=== PATIENT | female | born 1975 | race Two or more races ===

== ENCOUNTER 2017-06-20 01:51 | Inpatient (IN) | payer BC, MEDICAID, OTHER ==
[~2017-06-20] VITALS: Ht 165.1 cm; Wt 108.0 kg
--- NOTE | 2017-06-20 02:10 | NUR ---
PT BB SELF; BILAT LOWER EXTREMITY SWELLING X 3 WKS. PT AMBULATED TO BED WITH A STEADY GAIT. PT PLACED ON MONITOR WITH VITALS WNL. IV STARTED AND LABS DRAWN. PT C/O PAIN @ 5/10 ON LOWER FOOT. AWAITING MD ORDERS.
[2017-06-20] MEDS ORDERED: ASPIRIN 325 MG TABLET PO ONE (02:30)
[2017-06-20 02:58] LABS: BASOPHILS % (AUTO) 0.4 % (0.0-2.0); EOSINOPHILS % (AUTO) 0.4 % (0.0-6.0); HEMATOCRIT 39 % (33-45); HEMOGLOBIN 12.3 g/dL (11.5-14.8); LYMPHOCYTES # (AUTO) 2.2 /CMM (0.8-4.8); LYMPHOCYTES % (AUTO) 26.2 % (20.0-44.0); MEAN CORPUSCULAR HEMOGLOBIN 23 PG (26.0-33.0); MEAN CORPUSCULAR HGB CONC 32 g/dl (31.0-36.0); MEAN CORPUSCULAR VOLUME 73 fL (82-100); MONOCYTES # (AUTO) 0.8 /CMM (0.1-1.30); NEUTROPHILS # (AUTO) 5.5 /CMM (1.8-8.9); PLATELET COUNT (AUTO) 350 /CMM (150-450); RDW COEFFICIENT OF VARIATION 17.3 (11.5-15.0); RED BLOOD CELL COUNT(AUTO) 5.31 MIL/uL (4.0-5.2); WHITE BLOOD COUNT (AUTO) 8.6 K/uL (4.3-11.0)
[2017-06-20 03:09] LABS: CARBON DIOXIDE 24 mmol/L (21-32); CHLORIDE 106 mmol/L (98-107); CREATININE 0.9 mg/dL (0.6-1.3); GLUCOSE 108 mg/dL (74-106); POTASSIUM 4.2 mmol/L (3.5-5.1); SODIUM SERUM 138 mmol/L (136-145); UREA NITROGEN, BLOOD 19 mg/dL (7-18)
[2017-06-20 03:13] LABS: INR 1.1 (0.87-1.13); PROTHROMBIN TIME 11.4 SECS (9.5-12.7)
[2017-06-20 03:19] LABS: TROPONIN I < 0.017 ng/mL (0.00-0.056)
[2017-06-20] MEDS ORDERED: ASPIRIN 325 MG TABLET ONE (03:19)
[2017-06-20 03:22] LABS: ALANINE AMINOTRANSFERASE 71 U/L (12-78); ALBUMIN 3.1 g/dL (3.4-5.0); ALKALINE PHOSPHATASE 109 U/L (46-116); ASPARTATE AMINOTRANSFERASE 57 U/L (15-37); B-TYPE NATRIURETIC PEPTIDE 2012 PG/ML (0-125); BILIRUBIN,DIRECT 0.3 mg/dL (0.0-0.2); TOTAL PROTEIN, SERUM 7.7 g/dL (6.4-8.2)
[2017-06-20] MEDS ORDERED: FUROSEMIDE 40 MG/4 ML VIAL ONE (03:41)
[2017-06-20] MEDS ORDERED: FUROSEMIDE 40 MG/4 ML VIAL IV ONE (04:00)
--- NOTE | 2017-06-20 04:15 | NUR ---
REPORT GIVEN TO EDDIE/RN ON BEHALF OF PRIMARY NURSE WILIAM.
--- NOTE | 2017-06-20 04:20 | NUR ---
RN NOTES REPORT RECEIVED FROM DIESEL POWERPLANT MECHANIC GLEN/KIM
[2017-06-20] MEDS ORDERED: MAGNESIUM HYDROXIDE 30 ML UDC PO PRN (04:30)
[2017-06-20] MEDS ORDERED: ZOLPIDEM TARTRATE 5 MG TABLET PO PRN (04:30)
[2017-06-20] MEDS ORDERED: Z GUARD REMEDY 2 OZ OINT TP PRN (04:30)
[2017-06-20] MEDS ORDERED: MAG HYDROX/AL HYDROX/SIMETH 30 ML UDC PO PRN (04:30)
--- NOTE | 2017-06-20 04:30 | NUR ---
RN NOTES PT ARRIVED VIA GURNEY. ABLE TO AMBULATE ON A STEADY GAIT. ON ROOM AIR, NO S/S OF RESP DISTRESS, NO COMPLAINTS OF PAIN. PT IS CONTINENT AND IS BRP. SKIN IS INTACT. BILATERAL FEET SWELLING PITTING +2 NOTED. LEFT AC 18G FLUSHED AND PATENT, NO S/S OF INFILTRATION/INFECTION, DRESSING CDI. BED LOW AND LOCKED, SIDERAILS UP, CALL LIGHT WITHIN REACH. FAMILY AT BEDSIDE. WILL MONITOR
--- NOTE | 2017-06-20 04:39 | NUR ---
PT TRANSPORTED TO [facility] BED 112-1 PER ACLS PROTOCOL FOR CONTINUITY OF CARE.
[2017-06-20 04:44] VITALS: BP 139/105
[2017-06-20] MEDS ORDERED: HYDROCODONE/APAP 5/325MG 1 EACH TABLET ONE (06:25)
[2017-06-20] MEDS: HYDROCODONE/APAP 5/325MG 1 EACH TABLET PO PRN ×2 (06:26→11:20)
--- NOTE | 2017-06-20 06:30 | NUR ---
RN CLOSING NOTES PT REMAINS STABLE OF THE MOMENT. ALL DUE MEDS GIVEN, AM CARE PROVIDED. WILL ENDORSE FRANCY TO AM RN
--- NOTE | 2017-06-20 07:30 | NUR ---
RN NOTE PT AOX4, IN BED, AMBULATORY, NO SOB, CO PAIN IN ABDOMEN THAT RADIATES FROM CRAMPS IN HER BLE, EDEMA IN BOTH FEET +1, SKIN BLE PINK COLOR, TELE MONITOR IN PLACE, IV IN PLACE, LAC, 18 G, INTACT, ALEN LIGHT WITHIN REACH, BED IN LOCKED AND LOW POSITION, WILL MONITOR CLOSELY.
[2017-06-20 08:00] VITALS: BP 143/108
[2017-06-20] MEDS: FUROSEMIDE 40 MG/4 ML VIAL IV SCH (09:14)
[2017-06-20 10:29] LABS: THYROID STIMULATING HORMONE 1.049 uIU/mL (0.358-3.74)
[2017-06-20] MEDS ORDERED: POLYVINYL ALCOHOL 15 ML BOTTLE EACHEYE PRN (11:00)
[2017-06-20] MEDS: PANTOPRAZOLE 40 MG TABLET.DR PO SCH (11:13)
[2017-06-20] MEDS: VALSARTAN 80 MG TABLET PO SCH (11:14)
[2017-06-20] MEDS: ENOXAPARIN SODIUM 40 MG/0.4 ML DISP.SYRIN SQ SCH (11:15)
[2017-06-20] MEDS ORDERED: Calcium Gluconate 1GM/10ML 4.65 MEQ in IV D5W 50 ML IV ONE (11:30)
[2017-06-20 12:00] VITALS: BP_SYST 138; BP_DIAS 92; BP_DIAS 98
[2017-06-20] MEDS ORDERED: IV NS 0.9% 250 ML IV ONE (12:48)
[2017-06-20] MEDS ORDERED: IOHEXOL-350 100 ML VIAL IV ONE (12:48)
[2017-06-20] MEDS: ONDANSETRON HCL/PF 4 MG/2 ML VIAL IVP PRN ×2 (14:13→20:15)
--- NOTE | 2017-06-20 14:15 | NUR ---
RN NOTE PT VOMITED X1 AFTER HAVING LUNCH, ZOFRAN GIVEN. PAIN WAS ADDRESSED BY NORCO , EARLIER BEFORE CT OF THE CHEST. WILL MONITOR THE PT.
[2017-06-20 16:00] VITALS: BP 124/84
--- NOTE | 2017-06-20 19:30 | NUR ---
RN NOTE RECEIVED PATIENT IN BED, AWAKE, ALERT AND ORIENTED X4, ABLE TO VERBALIZE NEEDS. PATIENT DENIES SOB, BREATHING EVEN AND NONLABORED. NOTED WITH BLE EDEMA +1, WHICH PATIENT STATES "IT HAS IMPROVED." PATIENT ON TELEMETRY MONITORING, REVEALING SINUS RHYTHM. IV SITE PATENT AND INTACT, FLUSHED WITH NS, SALINE LOCKED. PLAN OF CARE DISCUSSED WITH THE PATIENT, WHO VERBALIZES UNDERSTANDING. CALL LIGHT LEFT WITHIN EASY REACH, BED IN LOWEST AND LOCKED POSITION. WILL CONTINUE TO CLOSELY MONITOR
[2017-06-20 20:00] VITALS: BP 111/74
[2017-06-21] VITALS: BP 135/88
[2017-06-21 04:00] VITALS: BP 104/70
--- NOTE | 2017-06-21 06:57 | NUR ---
RN CLOSING NOTES PATIENT SLEEPING IN BED, APPEARS COMFORTABLE. NO ACUTE CHANGES THROUGHOUT THE SHIFT. WILL ENDORSE THE PATIENT TO THE AM SHIFT NURSE FOR FRANCY
[2017-06-21 07:41] LABS: BILIRUBIN,TOTAL 0.8 mg/dL (0.2-1.0); CALCIUM, SERUM 9.3 mg/dL (8.5-10.1); CREATININE 0.9 mg/dL (0.6-1.3); MAGNESIUM 2.3 mg/dL (1.8-2.4); PHOSPHORUS 4.8 mg/dL (2.5-4.9); POTASSIUM 4.4 mmol/L (3.5-5.1); TOTAL PROTEIN, SERUM 7.8 g/dL (6.4-8.2)
[2017-06-21 07:43] LABS: BASOPHILS % (AUTO) 0.5 % (0.0-2.0); EOSINOPHILS % (AUTO) 0.3 % (0.0-6.0); HEMATOCRIT 43 % (33-45); HEMOGLOBIN 13.1 g/dL (11.5-14.8); LYMPHOCYTES % (AUTO) 19.6 % (20.0-44.0); MEAN CORPUSCULAR HEMOGLOBIN 23 PG (26.0-33.0); MEAN CORPUSCULAR HGB CONC 31 g/dl (31.0-36.0); MEAN CORPUSCULAR VOLUME 74 fL (82-100); MONOCYTES # (AUTO) 0.7 /CMM (0.1-1.30); MONOCYTES % (AUTO) 6.8 % (2.0-12.0); NEUTROPHILS # (AUTO) 7.4 /CMM (1.8-8.9); NEUTROPHILS % (AUTO) 72.8 % (43.0-81.0); PLATELET COUNT (AUTO) 364 /CMM (150-450); RDW COEFFICIENT OF VARIATION 17.3 (11.5-15.0); RED BLOOD CELL COUNT(AUTO) 5.73 MIL/uL (4.0-5.2); WHITE BLOOD COUNT (AUTO) 10.2 K/uL (4.3-11.0)
[2017-06-21 07:44] LABS: TROPONIN I 0.004 ng/mL (0.00-0.056)
[2017-06-21 08:00] VITALS: BP 104/70
[2017-06-21] MEDS: PANTOPRAZOLE 40 MG TABLET.DR PO SCH (08:56)
[2017-06-21] MEDS: FUROSEMIDE 40 MG/4 ML VIAL IV SCH (08:57)
[2017-06-21] MEDS: ENOXAPARIN SODIUM 40 MG/0.4 ML DISP.SYRIN SQ SCH (09:06)
[2017-06-21 11:15] LABS: BAND % (MANUAL) 4 % (0.0-5.0); LYMPHOCYTES % (MANUAL) 15 % (16-48); NEUTROPHILS % (MANUAL) 81 (42-76)
[2017-06-21 12:00] VITALS: BP 123/90
[2017-06-21] MEDS: VALSARTAN 80 MG TABLET PO SCH (12:34)
[2017-06-21] MEDS: SOD FERRIC GLUC 125 MG in IV NS 0.9% 100 ML IV SCH (15:10)
[2017-06-21 16:00] VITALS: BP 97/65
--- NOTE | 2017-06-21 19:45 | NUR ---
GREASER HELPER INITIAL NOTE PT RECEIVED IN NO ACUTE DISTRESS AT THIS TIME. ON TELE WITH ST 100'S. PT IS A/O X4 ABLE TO MAKE NEEDS KNOWN. AMBULATORY AND ABLE TO GO TO RESTROOM ON OWN. BREATHING PATTERN IS NORMAL WITH ADEQUATE CHEST RISE/FALL. PT HAS LAC 18 G AND RFA 18G THAT ARE CLEAN DRY AND INTACT. COMFORT AND SAFETY MEASURES TO BE ENSURED DURING THE SHIFT. WILL CONTINUE TO MONITOR FOR ANY CHANGES DURING THE SHIFT.
[2017-06-21 20:00] VITALS: BP 102/65
[2017-06-21] MEDS: ACETAMINOPHEN 325 MG TABLET PO PRN (21:02)
[2017-06-22] VITALS: BP 108/70
[2017-06-22 04:00] VITALS: BP 120/83
[2017-06-22 07:14] LABS: BASOPHILS % (AUTO) 0.3 % (0.0-2.0); EOSINOPHILS # (AUTO) 0.1 /CMM (0.0-0.7); EOSINOPHILS % (AUTO) 0.8 % (0.0-6.0); HEMATOCRIT 42 % (33-45); HEMOGLOBIN 13.4 g/dL (11.5-14.8); LYMPHOCYTES # (AUTO) 2.1 /CMM (0.8-4.8); MEAN CORPUSCULAR HEMOGLOBIN 23 PG (26.0-33.0); MEAN CORPUSCULAR HGB CONC 32 g/dl (31.0-36.0); MEAN CORPUSCULAR VOLUME 74 fL (82-100); MONOCYTES # (AUTO) 0.6 /CMM (0.1-1.30); MONOCYTES % (AUTO) 6.9 % (2.0-12.0); NEUTROPHILS # (AUTO) 5.6 /CMM (1.8-8.9); PLATELET COUNT (AUTO) 381 /CMM (150-450); RDW COEFFICIENT OF VARIATION 17.8 (11.5-15.0); RED BLOOD CELL COUNT(AUTO) 5.73 MIL/uL (4.0-5.2); WHITE BLOOD COUNT (AUTO) 8.4 K/uL (4.3-11.0)
[2017-06-22 07:27] LABS: CALCIUM, SERUM 9.1 mg/dL (8.5-10.1); CREATININE 0.8 mg/dL (0.6-1.3); MAGNESIUM 2.2 mg/dL (1.8-2.4); PHOSPHORUS 3.5 mg/dL (2.5-4.9); POTASSIUM 4.1 mmol/L (3.5-5.1)
[2017-06-22 08:00] VITALS: BP 122/85
[2017-06-22 09:06] LABS: LYMPHOCYTES % (MANUAL) 12 % (16-48); MONOCYTES % (MANUAL) 5 % (0-11.0); NEUTROPHILS % (MANUAL) 83 (42-76)
[2017-06-22] MEDS: FUROSEMIDE 40 MG/4 ML VIAL IV SCH (11:35)
[2017-06-22] MEDS: VALSARTAN 80 MG TABLET PO SCH (11:35)
[2017-06-22] MEDS: ACETAMINOPHEN 325 MG TABLET PO PRN (11:49)
[2017-06-22] MEDS: PANTOPRAZOLE 40 MG TABLET.DR PO SCH (11:49)
[2017-06-22] MEDS: ENOXAPARIN SODIUM 40 MG/0.4 ML DISP.SYRIN SQ SCH (11:53)
[2017-06-22 12:00] VITALS: BP 91/63
[2017-06-22] MEDS: SOD FERRIC GLUC 125 MG in IV NS 0.9% 100 ML IV SCH (14:41)
[2017-06-22 16:00] VITALS: BP 106/66
--- NOTE | 2017-06-22 19:15 | NUR ---
Handoff report to night nurse.
--- NOTE | 2017-06-22 19:45 | NUR ---
LOAN COORDINATOR INITIAL NOTE PT RECEIVED IN NO ACUTE DISTRESS AT THIS TIME. ON TELE WITH ST 100'S. PT IS A/O X4 ABLE TO MAKE NEEDS KNOWN. AMBULATORY AND ABLE TO GO TO RESTROOM ON OWN. BREATHING PATTERN IS NORMAL WITH ADEQUATE CHEST RISE/FALL. PT HAS LAC 18 G CLEAN DRY AND INTACT. COMFORT AND SAFETY MEASURES TO BE ENSURED DURING THE SHIFT. WILL CONTINUE TO MONITOR FOR ANY CHANGES DURING THE SHIFT.
[2017-06-22 20:00] VITALS: BP 100/68
[2017-06-23 04:00] VITALS: BP 127/85
--- NOTE | 2017-06-23 07:30 | NUR ---
PT. A/O X4 .NO S/S OF DISTRESS, BREATHING EVEN AND UNLABORED.I.V SITE CDI AND PATENT.NO C/O PAIN.SAFETY MEASURES IN PLACE.BED IN LOW AND LOCKED POSITION.WILL CONTINUE TO MONITOR FOR CHANGES.
[2017-06-23 08:00] VITALS: BP 103/74
[2017-06-23] MEDS: VALSARTAN 80 MG TABLET PO SCH (09:02)
[2017-06-23] MEDS: ENOXAPARIN SODIUM 40 MG/0.4 ML DISP.SYRIN SQ SCH (09:03)
[2017-06-23] MEDS: PANTOPRAZOLE 40 MG TABLET.DR PO SCH (09:04)
[2017-06-23] MEDS ORDERED: FERR-58 PO (11:17)
[2017-06-23] MEDS ORDERED: VALS80TA2 PO (11:17)
[2017-06-23 12:00] VITALS: BP 103/74
--- NOTE | 2017-06-23 13:00 | NUR ---
patient d/c to home as per m.d order.all orders noted and carried out.all d/c instructions and belongings provided to patient.
== END 2017-06-23 13:44 | disposition home or self-care (01) | DRG 142 ==
LOC: ER 01:54 → TELE1 04:14 → MEDSG1 06-22 13:18
PROVIDERS: ADMIT Family Medicine; ATTEND Family Medicine
DX: J84.9 Interstitial pulmonary disease, unspecified (principal); I50.33 Acute on chronic diastolic (congestive) heart failure; E11.42 Type 2 diabetes mellitus with diabetic polyneuropathy; I27.20 Pulmonary hypertension, unspecified; E66.01 Morbid (severe) obesity due to excess calories; E88.09 Other disorders of plasma-protein metabolism, not elsewhere classified; I36.1 Nonrheumatic tricuspid (valve) insufficiency; G47.33 Obstructive sleep apnea (adult) (pediatric); D50.9 Iron deficiency anemia, unspecified; K76.0 Fatty (change of) liver, not elsewhere classified; I34.0 Nonrheumatic mitral (valve) insufficiency; Z68.39 Body mass index [BMI] 39.0-39.9, adult; I87.8 Other specified disorders of veins
CPT/HCPCS: 36415; 71010-TC; 80048-TC; 80053-TC; 80061-TC; 80076-TC; 82306; 82728-TC; 83540-TC; 83735-TC; 83880; 84100-TC; 84439-TC; 84443-TC; 84484-TC; 84702-TC; 85025-TC; 85730-TC; 87081-TC; 93307-TC; 93970-TC; A4606; J0610; J1650; J1940; J2405; J2916; J7030; J7050; J7060; Q9967; Z7610

== ENCOUNTER 2017-06-28 14:08 | Outpatient (CLI) | payer OTHER ==
[~2017-06-28 14:08] MED LIST: FERR-58 PO; VALS80TA2 PO
== END 2017-06-28 23:59 | disposition home or self-care (01) ==
LOC: MSC 14:08
PROVIDERS: ATTEND Internal Medicine
DX: R68.89 Other general symptoms and signs (principal)

== ENCOUNTER 2017-08-03 22:14 | Emergency (ER) | payer OTHER ==
[~2017-08-03] VITALS: Ht 157.5 cm; Wt 107.5 kg
--- NOTE | 2017-08-03 22:30 | NUR ---
BIBSELF C/O "COUGH AND CONGESTION X 3 MONTHS" PT STATES "SOB" A/OX 4. BREATHING EVEN AND UNLABORED. SATURATION 96% ON ROOM AIR. VITALS STABLE. SAFETY AND COMFORT MEASURES IN PLACE. AWAITING MD ORDERS.
[2017-08-03] MEDS ORDERED: IV NS 0.9% 1,000 ML BAG IV ONE (23:00)
--- NOTE | 2017-08-03 23:10 | NUR ---
NEW IV STARTED ON LEFT HAND, 20 G. BLOOD DRAWN AND SENT TO LAB.
[2017-08-03 23:38] LABS: CALCIUM, SERUM 8.8 mg/dL (8.5-10.1); CARBON DIOXIDE 20 mmol/L (21-32); CHLORIDE 109 mmol/L (98-107); CREATININE 0.9 mg/dL (0.6-1.3); GLUCOSE 94 mg/dL (74-106); POTASSIUM 4.7 mmol/L (3.5-5.1); SODIUM SERUM 143 mmol/L (136-145); UREA NITROGEN, BLOOD 14 mg/dL (7-18)
[2017-08-03 23:43] LABS: BASOPHILS # (AUTO) 0.1 /CMM (0.0-0.2); BASOPHILS % (AUTO) 1.4 % (0.0-2.0); EOSINOPHILS % (AUTO) 0.2 % (0.0-6.0); HEMATOCRIT 44 % (33-45); HEMOGLOBIN 13.3 g/dL (11.5-14.8); LYMPHOCYTES # (AUTO) 1.8 /CMM (0.8-4.8); LYMPHOCYTES % (AUTO) 22.2 % (20.0-44.0); MEAN CORPUSCULAR HEMOGLOBIN 22 PG (26.0-33.0); MEAN CORPUSCULAR HGB CONC 30 g/dl (31.0-36.0); MEAN CORPUSCULAR VOLUME 71 fL (82-100); MONOCYTES # (AUTO) 0.6 /CMM (0.1-1.30); MONOCYTES % (AUTO) 6.7 % (2.0-12.0); NEUTROPHILS # (AUTO) 5.7 /CMM (1.8-8.9); NEUTROPHILS % (AUTO) 69.5 % (43.0-81.0); PLATELET COUNT (AUTO) 324 /CMM (150-450); RED BLOOD CELL COUNT(AUTO) 6.18 MIL/uL (4.0-5.2); WHITE BLOOD COUNT (AUTO) 8.2 K/uL (4.3-11.0)
--- NOTE | 2017-08-03 23:45 | NUR ---
US TECH AT BEDSIDE.
[2017-08-03 23:50] LABS: ALANINE AMINOTRANSFERASE 66 U/L (12-78); ALBUMIN 3.1 g/dL (3.4-5.0); ALKALINE PHOSPHATASE 115 U/L (46-116); ASPARTATE AMINOTRANSFERASE 57 U/L (15-37); BILIRUBIN,DIRECT 0.2 mg/dL (0.0-0.2); BILIRUBIN,TOTAL 0.7 mg/dL (0.2-1.0); TOTAL PROTEIN, SERUM 8.1 g/dL (6.4-8.2)
[2017-08-04] MEDS ORDERED: predniSONE 20 MG TABLET PO ONE (00:30)
[2017-08-04] MEDS ORDERED: predniSONE 20 MG TABLET ONE (00:42)
[2017-08-04 01:02] VITALS: BP 156/74
--- NOTE | 2017-08-04 01:02 | NUR ---
PT OK TO DISCHARGE PER [employer] HAT MAKER. Patient discharged to home in stable condition. Written and verbal after care instructions given. Patient verbalizes understanding of instruction.Patient is awake and alert to self, day, and place. PT ambulatory with a steady gait
== END 2017-08-04 01:03 | disposition home or self-care (01) ==
LOC: ER 22:18
DX: J40 Bronchitis, not specified as acute or chronic (principal); I73.89 Other specified peripheral vascular diseases
CPT/HCPCS: 36415; 71010; 80048; 80076; 83605; 85025; 85652; 86140; 87040 ×2; 93925; 93970; 96360; 99285; A4606; J7030; J7512; Z7610

== ENCOUNTER 2017-09-29 00:33 | Inpatient (IN) | payer OTHER ==
[~2017-09-29] VITALS: Ht 160 cm; Wt 117.9 kg
[~2017-09-29 00:33] MED LIST changes: -FERR-58 PO; +FERR325T23 PO
--- NOTE | 2017-09-29 00:50 | NUR ---
PT PRESENTED TO THE ER WITH A C/O BLE EDEMA, REDNESS, C/O SOB, TIGHTNESS NOTED, PT STATED: "I CAN'T FEEL MY FEET TODAY". SMALL RASH NOTED ON BUE AND BLE WITH WEEPING AREAS ON BLE. EASTON SALCEDO IS AT THE BEDSIDE SPEAKING TO THE PT.
--- NOTE | 2017-09-29 01:09 | NUR ---
DR SCHAFFER IS AT THE BEDSIDE EVALUATING THE PT.
[2017-09-29] MEDS ORDERED: IV NS 0.9% 1,000 ML BAG IV ONE (01:30)
--- NOTE | 2017-09-29 01:56 | NUR ---
CXR IN PROGRESS AT THE BEDSIDE.
--- NOTE | 2017-09-29 01:56 | NUR ---
CHERIE, CLOTHES IRONER AWAITING BLOOD DRAW.
--- NOTE | 2017-09-29 01:57 | NUR ---
VALERIA ROSE ASSUMING CARE OF PT.
--- NOTE | 2017-09-29 02:06 | NUR ---
EKG DONE AT THE BEDSIDE. BLOOD DRAW DONE AND TAKEN TO LAB. PT WAS UNABLE TO GIVE A URINE SAMPLE.
--- NOTE | 2017-09-29 02:07 | NUR ---
PT'S BILATERAL TOES ARE PURPLE AND COOL TO TOUCH. TOENAILS ARE CYANOTIC. MD IS AWARE. STRONG BILATERAL PEDAL PULSES NOTED.
--- NOTE | 2017-09-29 02:10 | NUR ---
PT REC'D WARM BLANKETS AND APPEARS TO BE RESTING COMFORTABLY. RESP EVEN AND UNLABORED. PT IS ST ON THE MONITOR @109.
[2017-09-29 02:18] LABS: BASOPHILS # (AUTO) 0.1 /CMM (0.0-0.2); BASOPHILS % (AUTO) 1.5 % (0.0-2.0); EOSINOPHILS % (AUTO) 0.1 % (0.0-6.0); HEMATOCRIT 43 % (33-45); LYMPHOCYTES # (AUTO) 1.7 /CMM (0.8-4.8); LYMPHOCYTES % (AUTO) 21.2 % (20.0-44.0); MEAN CORPUSCULAR HEMOGLOBIN 21 PG (26.0-33.0); MEAN CORPUSCULAR HGB CONC 31 g/dl (31.0-36.0); MEAN CORPUSCULAR VOLUME 70 fL (82-100); MONOCYTES # (AUTO) 0.4 /CMM (0.1-1.30); MONOCYTES % (AUTO) 5.1 % (2.0-12.0); NEUTROPHILS # (AUTO) 5.8 /CMM (1.8-8.9); NEUTROPHILS % (AUTO) 72.1 % (43.0-81.0); PLATELET COUNT (AUTO) 310 /CMM (150-450); RDW COEFFICIENT OF VARIATION 21.8 (11.5-15.0); RED BLOOD CELL COUNT(AUTO) 6.12 MIL/uL (4.0-5.2); WHITE BLOOD COUNT (AUTO) 8.1 K/uL (4.3-11.0)
--- NOTE | 2017-09-29 02:20 | NUR ---
PT REMINDED THAT URINE SAMPLE STILL NEEDED. WILL F/U
--- NOTE | 2017-09-29 02:31 | NUR ---
PT OFF TO CT SCAN IN STABLE CONDITION
[2017-09-29 02:35] LABS: INR 1.47 (0.87-1.13)
--- NOTE | 2017-09-29 02:40 | NUR ---
PT BACK FROM CT SCAN
[2017-09-29 02:41] LABS: TROPONIN I 0.017 ng/mL (0.00-0.056)
[2017-09-29 02:47] LABS: ALANINE AMINOTRANSFERASE 40 U/L (12-78); ALBUMIN 2.8 g/dL (3.4-5.0); ALKALINE PHOSPHATASE 122 U/L (46-116); ASPARTATE AMINOTRANSFERASE 49 U/L (15-37); B-TYPE NATRIURETIC PEPTIDE 1501 PG/ML (0-125); BILIRUBIN,DIRECT 1.7 mg/dL (0.0-0.2); BILIRUBIN,TOTAL 2.9 mg/dL (0.2-1.0); CARBON DIOXIDE 22 mmol/L (21-32); CHLORIDE 107 mmol/L (98-107); CREATININE 0.8 mg/dL (0.6-1.3); GLUCOSE 90 mg/dL (74-106); POTASSIUM 4.1 mmol/L (3.5-5.1); SODIUM SERUM 141 mmol/L (136-145); TOTAL PROTEIN, SERUM 8.3 g/dL (6.4-8.2); UREA NITROGEN, BLOOD 15 mg/dL (7-18)
[2017-09-29 02:50] LABS: BAND % (MANUAL) 2 % (0.0-5.0); LYMPHOCYTES % (MANUAL) 23 % (16-48); MONOCYTES % (MANUAL) 4 % (0-11.0); NEUTROPHILS % (MANUAL) 71 (42-76)
--- NOTE | 2017-09-29 03:01 | NUR ---
ER AWARE OF ELEVATED LAB LACTIC ACID
[2017-09-29] MEDS ORDERED: FUROSEMIDE 40 MG/4 ML VIAL IV ONE (03:30)
[2017-09-29] MEDS ORDERED: FUROSEMIDE 40 MG/4 ML VIAL ONE (03:35)
[2017-09-29] MEDS ORDERED: FUROSEMIDE 20 MG/2 ML VIAL ONE (03:35)
--- NOTE | 2017-09-29 03:59 | NUR ---
PT COMFORTABLY SLEEPING IN BED. NO C/O PAIN OR SOB
--- NOTE | 2017-09-29 04:39 | NUR ---
REPORT GIVEN TO [place]
--- NOTE | 2017-09-29 05:00 | NUR ---
MS RN NOTE: RECEIVED PATIENT FROM ER, NO ACUTE DISTRESS NOTED. BREATHING EVEN AND UNLABORED, NO SOB NOTED. IV TO RIGHT HAND IN PLACE. PATIENT WITH RASHES ALL OVER BODY, PICTURES TAKEN. ORIENTED PATIENT TO ROOM AND USE OF CALL LIGHT . BED LOCKED AND IN LOWEST POSITION, CALL LIGHT IN REACH. WILL CONTINUE TO MONITOR.
--- NOTE | 2017-09-29 06:15 | NUR ---
MS RN NOTE: PATIENT LACTIC ACID 2.3, CALLED BATTERY CONTAINER TESTER ALUMINUM MD, SPOKE TO DR. VELEZ. PATIENT TO BE ADMITTED TO TELE, PATIENT TO BE TRANSFERRED UP TO ROOM 315-2. MD TO ENTER THE REST OF MD ORDER. WILL CONTINUE TO MONITOR.
[2017-09-29] MEDS ORDERED: ONDANSETRON HCL/PF 4 MG/2 ML VIAL IVP PRN (06:30)
[2017-09-29] MEDS ORDERED: ACETAMINOPHEN 325 MG TABLET PO PRN (06:30)
[2017-09-29] MEDS ORDERED: MORPHINE SULFATE INJ 2 MG/ML DISP.SYRIN IV PRN (06:30)
[2017-09-29] MEDS ORDERED: ZOLPIDEM TARTRATE 5 MG TABLET PO PRN (06:30)
--- NOTE | 2017-09-29 06:50 | NUR ---
APPLICATIONS DEVELOPMENT ANALYST NOTE: PATIENT TRANSFERRED UP TO ROOM 315-2 IN STABLE CONDITION, REPORT GIVEN TO JOHNSON. BELONGINGS WITH PATIENT.
[2017-09-29 08:00] VITALS: BP 143/97
[2017-09-29 08:01] LABS: BASOPHILS # (AUTO) 0.1 /CMM (0.0-0.2); BASOPHILS % (AUTO) 1.1 % (0.0-2.0); EOSINOPHILS % (AUTO) 0.4 % (0.0-6.0); HEMATOCRIT 39 % (33-45); HEMOGLOBIN 12.1 g/dL (11.5-14.8); LYMPHOCYTES # (AUTO) 1.5 /CMM (0.8-4.8); LYMPHOCYTES % (AUTO) 20.3 % (20.0-44.0); MEAN CORPUSCULAR HEMOGLOBIN 21 PG (26.0-33.0); MEAN CORPUSCULAR HGB CONC 31 g/dl (31.0-36.0); MEAN CORPUSCULAR VOLUME 69 fL (82-100); MONOCYTES # (AUTO) 0.7 /CMM (0.1-1.30); MONOCYTES % (AUTO) 9.1 % (2.0-12.0); NEUTROPHILS # (AUTO) 5.1 /CMM (1.8-8.9); NEUTROPHILS % (AUTO) 69.1 % (43.0-81.0); PLATELET COUNT (AUTO) 274 /CMM (150-450); RDW COEFFICIENT OF VARIATION 21.9 (11.5-15.0); RED BLOOD CELL COUNT(AUTO) 5.64 MIL/uL (4.0-5.2); WHITE BLOOD COUNT (AUTO) 7.4 K/uL (4.3-11.0)
--- NOTE | 2017-09-29 08:15 | NUR ---
LACTIC ACID REPORT GIVEN TO DR. FLETCHER.
[2017-09-29 08:17] LABS: IRON, SERUM 42 ug/dl (50-175); TOTAL IRON BINDING CAPACITY 521 ug/dl (250-450)
[2017-09-29 08:21] LABS: ALANINE AMINOTRANSFERASE 35 U/L (12-78); ALBUMIN 2.6 g/dL (3.4-5.0); ALKALINE PHOSPHATASE 112 U/L (46-116); ASPARTATE AMINOTRANSFERASE 45 U/L (15-37); BILIRUBIN,TOTAL 3.3 mg/dL (0.2-1.0); CARBON DIOXIDE 23 mmol/L (21-32); CHLORIDE 108 mmol/L (98-107); CREATININE 0.9 mg/dL (0.6-1.3); GLUCOSE 82 mg/dL (74-106); MAGNESIUM 1.7 mg/dL (1.8-2.4); PHOSPHORUS 2.9 mg/dL (2.5-4.9); POTASSIUM 4.1 mmol/L (3.5-5.1); SODIUM SERUM 143 mmol/L (136-145); TOTAL PROTEIN, SERUM 7.7 g/dL (6.4-8.2); UREA NITROGEN, BLOOD 15 mg/dL (7-18)
[2017-09-29 08:28] LABS: THYROID STIMULATING HORMONE 1.924 uIU/mL (0.358-3.74)
[2017-09-29] MEDS ORDERED: FUROSEMIDE 20 MG/2 ML VIAL IV SCH (09:00)
[2017-09-29 09:10] LABS: EOSINOPHILS % (MANUAL) 1 % (0-4); LYMPHOCYTES % (MANUAL) 20 % (16-48); MONOCYTES % (MANUAL) 6 % (0-11.0); NEUTROPHILS % (MANUAL) 73 (42-76)
--- NOTE | 2017-09-29 10:00 | NUR ---
DR. VORA IN TO SEE PT. ORDERS GIVEN.PT. KENNY AT TIMES,NO COMPLAINTS OFFERED.
[2017-09-29] MEDS: IV NS 0.9% 1,000 ML IV PRN (11:42)
[2017-09-29] MEDS ORDERED: IOHEXOL-300 100 ML VIAL IV ONE (11:45)
[2017-09-29] MEDS ORDERED: CT SWABBABLE VALVE TRANS SET 1 EA INFUS.SET MC ONE (11:45)
[2017-09-29] MEDS: METOPROLOL TARTRATE 25 MG TABLET PO SCH ×2 (11:55→20:59)
[2017-09-29] MEDS: PANTOPRAZOLE 40 MG TABLET.DR PO SCH (11:55)
--- NOTE | 2017-09-29 12:30 | NUR ---
INSISTED ON GETTING UP TO BATHRM,ALTHOUGH DIZZY,RN DISCOURAGED.PT. ADAMANT.TAKEN TO BATHROOM IN W/C,HAD SMALL BM.SHORTLY AFTER GETTING BACK TO BED,WITH INCREASED DIZZINESS,POX TO 89%BP TO 101/64HEART RATE 78.RN STAYED IN RM. THEN BP 93/60.O2 ON IMMEDIATELY TO 3L.POX TO 92%.FOR SHORT TIME FLUCTUATED TO 89%.ENCOURAGED TO TAKE DEEP BREATH,PT.GROGGY,BUT COMPLIANT.STATES RT. ARM HEAVY AFTER CT SCAN,THEN ASKING FOR ATIVAN.SIDE RAILS UP CALL BOJORQUEZ WTIN REACH.TO MONITOR CLOSELY.
[2017-09-29] MEDS: Magnesium 1GM/D5W 100ML PREMIX 100 ML IV SCH ×2 (12:58→15:28)
--- NOTE | 2017-09-29 13:15 | NUR ---
TEXTED WITH PT,S SYMPTOMS AND REQUEST FOR ATIVAN.
[2017-09-29 13:25] LABS: APPEARANCE,URINE CLEAR (CLEAR); BILIRUBIN,URINE NEGATIVE (NEGATIVE); BLOOD, URINE 1+ Ery/uL (NEGATIVE); COLOR,URINE YELLOW (YELLOW); KETONES,URINE NEGATIVE (NEGATIVE); LEUKOCYTE ESTERASE ,URINE NEGATIVE (NEGATIVE); NITRITE, URINE NEGATIVE (NEGATIVE); PROTEIN,URINE NEGATIVE (NEGATIVE); UGLUCOSE NEGATIVE (NEGATIVE); UROBILINOGEN,URINE 0.2 EU/dL (0.2)
[2017-09-29 13:29] LABS: BACTERIA,URINE None seen /HPF (None Seen); SQUAMOUS EPITHELIAL CELL,UR Few /HPF (None Seen); WBC,URINE NONE SEEN /HPF (0-3)
--- NOTE | 2017-09-29 14:30 | NUR ---
RECEIVED ORDERS.INSTRUCTED NOT TO GET OOB ALONE.
--- NOTE | 2017-09-29 15:00 | NUR ---
2 GMS MG IV GIVEN.
[2017-09-29] MEDS: methylPREDNISolone SOD SUCC 125 MG/2ML VIAL IV SCH ×2 (15:29→19:13)
[2017-09-29 16:00] VITALS: BP 104/70
[2017-09-29] MEDS ORDERED: LORAZEPAM 1 MG TABLET PO PRN (16:30)
--- NOTE | 2017-09-29 16:50 | NUR ---
AT THIS TIME STATES DOES NOT NEED ATIVAN YET.
--- NOTE | 2017-09-29 19:45 | NUR ---
RN Initial Notes Received pt laying in bed with HOB elevated. A/o x3 afebrile. Respirations are even and unlabored, not in any acute distress noted. Denies any pain at this time. IV to Right hand intact, no infiltration noted. Dressing kept clean and dry. Safety measures in place. Instructed pt to use call light when assistance is needed, call light is left within reach. Will continue to monitor throughout shift.
[2017-09-29 20:00] VITALS: BP 137/79
--- NOTE | 2017-09-30 00:20 | NUR ---
RN Notes Pt is sleeping comfortably, but easily arousable. Denies any pain at this time. Assisted pt to reposition and offload heels to prevent further skin injuries. Will continue to monitor. Reminded pt to use call light when assistance is needed, call light is left within reach.
[2017-09-30] MEDS: IV NS 0.9% 1,000 ML IV PRN (01:45)
--- NOTE | 2017-09-30 06:27 | NUR ---
RN Closing Notes All due meds given, needs met and rendered. Pt is A/o 3, easily arousable, remains afebrile. Respirations are even and unlabored, not in any acute distress noted. Denies any pain, SOB, n/v. IV to R hand intact and patent, no infiltration noted. Dressing kept clean and dry. Pt able to reposition self. Safety measures in place. Reminded pt to use call light when assistance is needed, call light left within reach. Will endorse to next shift for continuity of care.
[2017-09-30 07:22] LABS: CALCIUM, SERUM 8.3 mg/dL (8.5-10.1); CREATININE 0.7 mg/dL (0.6-1.3); MAGNESIUM 2.2 mg/dL (1.8-2.4); POTASSIUM 4.4 mmol/L (3.5-5.1)
--- NOTE | 2017-09-30 07:30 | NUR ---
RN NOTES: - patient on bed, alert, verbally responsive,with IV infusing well, denies pain, , talking with co-patient , non-labored respiration.
[2017-09-30] MEDS: PANTOPRAZOLE 40 MG TABLET.DR PO SCH (07:53)
[2017-09-30 08:00] VITALS: BP 148/110
[2017-09-30] MEDS: methylPREDNISolone SOD SUCC 125 MG/2ML VIAL IV SCH ×2 (08:57→12:20)
[2017-09-30] MEDS: METOPROLOL TARTRATE 25 MG TABLET PO SCH (08:57)
[2017-09-30 09:54] LABS: *SPE A/G RATIO 0.7 (0.7-1.7); *SPE ALPHA-1-GLOBULIN 0.4 g/dL (0.0-0.4); *SPE ALPHA-2-GLOBULIN 0.7 g/dL (0.4-1.0); *SPE BETA GLOBULIN 1.1 g/dL (0.7-1.3); *SPE GLOBULIN, TOTAL 4.4 g/dL (2.2-3.9); *SPE M-SPIKE Not Observed g/dL (Not Observed); *SPEGAMMA GLOBULIN 2.3 g/dL (0.4-1.8)
[2017-09-30] MEDS ORDERED: METO25TA20 PO (10:59)
[2017-09-30 12:00] VITALS: BP 163/114
--- NOTE | 2017-09-30 12:00 | NUR ---
- Texted Dr. Carroll on the BP =142/110, LR=641,asymptomatic., waiting for return call of .
[2017-09-30 14:00] VITALS: BP 147/110
[2017-09-30] MEDS ORDERED: METOPROLOL TARTRATE 25 MG TABLET PO SCH (14:00)
[2017-09-30] MEDS ORDERED: METOPROLOL TARTRATE 25 MG TABLET PO ONE ×4 (14:30→21:00)
[2017-09-30 17:00] VITALS: BP 130/80
[2017-09-30 17:01] VITALS: BP 135/80
--- NOTE | 2017-09-30 18:55 | NUR ---
- BLOOD PRESSURE MONITORED AFTER RECEIVING A RETURNED MESSAGE FROM DR. VORA TO GIVE LOPRESSOR 25MG X1 & TO CALL MD IF BLOOD PRESSURE READING REMAINED HIGH. BP READINGS WERE TAKEN & RECORDED & AFTER 1 HOUR & 30MIN. BP WAS TAKEN MANUALLY 2X WITH LAST BP READING TAKEN BY MONICA PENN RN OF 130/80 , PATIENT REMAINED ASYMPTOMATIC, ABLE TO AMBULATE & DRESSED HERSELF WITHOUT C/O DIZZINESS. IV SITES WERE REMOVED APPLIED PRESSURE DRESSING, STATED THAT HER CAR IS PARKED IN THE PARKING LOT & IS ABLE TO DRIVE HERSELF HOME SINCE HER HAS NO PHONE THIS TIME. PATIENT WAS WHEELED TO THE PARKING LOT VIA WHEELCHAIR BY ASSIGNED APPLE PACKING HEADER ALERT, NOT IN DISTRESS.
== END 2017-09-30 18:00 | disposition home or self-care (01) | DRG 811 ==
LOC: ER 00:37 → MEDSG2 04:24 → TELE 06:45 → MED 13:36
PROVIDERS: ADMIT Internal Medicine; ATTEND Internal Medicine
DX: T78.40XA Allergy, unspecified, initial encounter (principal); D89.89 Other specified disorders involving the immune mechanism, not elsewhere classified; E87.2 Acidosis; I27.20 Pulmonary hypertension, unspecified; I31.3 Pericardial effusion (noninflammatory); E44.1 Mild protein-calorie malnutrition; Z68.42 Body mass index [BMI] 45.0-49.9, adult; I50.9 Heart failure, unspecified; E66.01 Morbid (severe) obesity due to excess calories; E86.0 Dehydration; X58.XXXA Exposure to other specified factors, initial encounter; G47.33 Obstructive sleep apnea (adult) (pediatric); I87.2 Venous insufficiency (chronic) (peripheral); Z90.49 Acquired absence of other specified parts of digestive tract; D50.9 Iron deficiency anemia, unspecified
CPT/HCPCS: 36415; 71045-TC; 71250-TC; 80048-TC; 80053-TC; 80076-TC; 81000-TC; 83540-TC; 83605-TC; 83615-TC; 83735-TC; 83880; 84100-TC; 84155; 84165; 84439-TC; 84443-TC; 84484-TC; 85025-TC; 85652-TC; 85730-TC; 86140-TC; 87040-TC; 87081-TC; 87086-TC; A4606; A6402; J1940; J2930; J3475; J7030; Q9967; Z7610